=== PATIENT | female | born 1945 | race Caucasian/White ===

== ENCOUNTER 2021-08-01 04:41 | Day surgery (SDC) | payer OTHER, BC ==
[2021-07-29 14:31] VITALS: BMI 27.5
[2021-08-01 10:10] VITALS: TEMP 98.4
[2021-08-01 10:37] VITALS: PULSE 70
[2021-08-01 10:50] VITALS: BP 136/56
== END 2021-08-01 10:50 | disposition home or self-care (01) ==
LOC: JASU-ENDO 04:41
PROVIDERS: ATTEND Internal Medicine Gastroenterology
PROC: 0DJD8ZZ Inspection of Lower Intestinal Tract, Via Natural or Artificial Opening Endoscopic (ICD-10-PCS; principal; 2021-08-01 10:15)
DX: Z51.11 Encounter for antineoplastic chemotherapy (principal); K57.30 Diverticulosis of large intestine without perforation or abscess without bleeding; K64.8 Other hemorrhoids